=== PATIENT | male | born 1980 | race Caucasian/White ===

== ENCOUNTER 2017-02-25 13:40 | Emergency (ER) | payer MEDICARE, OTHER ==
[~2017-02-25] VITALS: Ht 182.9 cm; Wt 136.1 kg
[~2017-02-25 13:40] MED LIST: ACETAMINOPHEN-1 EAC1 PO; CELEXA40 MG PO; DOXYCYCLINE HY100 MG PO; NORCO 5-325 TA1 EACH PO; ZITHROMAX250 MG PO
[2017-02-25] MEDS ORDERED: NAPROXEN500 MG PO (13:56)
[2017-02-25] MEDS ORDERED: PREDNISONE20 MG PO (16:09)
== END 2017-02-25 16:28 | disposition home or self-care (01) ==
LOC: ED 13:40
DX: K52.9 Noninfective gastroenteritis and colitis, unspecified (principal); Z86.718 Personal history of other venous thrombosis and embolism; Z88.0 Allergy status to penicillin; Z88.8 Allergy status to other drugs, medicaments and biological substances; Z79.899 Other long term (current) drug therapy
CPT/HCPCS: 80053; 85025; 99283; J7512

== ENCOUNTER 2017-04-23 09:21 | Day surgery (SDC) | payer MEDICARE, OTHER ==
[~2017-04-23] VITALS: Ht 182.9 cm; Wt 136.1 kg
[~2017-04-23 09:21] MED LIST changes: +NAPROXEN500 MG PO; +PREDNISONE20 MG PO
[2017-04-23] MEDS ORDERED: NORCO 5-325 TA1 EACH PO (11:40)
[2017-04-23] MEDS ORDERED: CYCLOBENZAPRINE10 MG PO (11:40)
[2017-04-23] MEDS ORDERED: HYDROXYZINE HCL25 MG PO (11:42)
[2017-04-23] MEDS ORDERED: PRAZOSIN HCL1 GM (11:43)
[2017-04-23] MEDS ORDERED: OMEPRAZOLE20 MG PO (11:43)
--- NOTE | 2017-04-23 14:02 | NUR ---
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
--- NOTE | 2017-04-24 12:51 | OR ---
[facility] [address], [place] [address] Signed DATE OF OPERATION: 04/23/2017 SURGEON: Twila Han MD PREOPERATIVE DIAGNOSES: 1. Episodic left abdominal pain and episodic rectal bleeding. 2. History of clinical diagnosis of "irritable bowel syndrome.". POSTOPERATIVE DIAGNOSES: Large pedunculated polyp at 50 cm (excised). Small polyp of rectosigmoid also excised. PROCEDURE: Total colonoscopy to cecum with hot snare polypectomy x1 and cold morcellation polypectomy x1. SURGEON: Twila Han MD. ANESTHESIA: Intravenous sedation, propofol infusion; Pamela Kimball CRNA INDICATION: This morbidly obese, very large 36-year-old white man is a of the [place] war [place] war. He is said to have acquired a diarrheal illness while in [place]. He has been considered to have "irritable bowel syndrome" based on the evaluation of others in the past. He is referred by Dr. Jh Keene of [facility] for consideration of colonoscopy due to his symptoms and also due to episodic rectal bleeding. The patient has no family history of colon cancer that he is aware of. He is admitted to undergo colonoscopy. He understands the risks of bleeding, infection, and perforation. FINDINGS: Prep was good. Complete colonoscopy was undertaken to the cecum. There was no sign of colitis or diverticular change. There was a large pedunculated polyp at 50 cm, which was excised with hot snare polypectomy technique. Another small polyp, which was sessile was noted at the rectosigmoid. It too was excised with cold morcellation technique on that occasion. DESCRIPTION OF PROCEDURE: The patient was brought to the endoscopy suite and placed in lateral decubitus position. He was given intravenous sedation with propofol infusion with full cardiopulmonary monitoring based on his extreme body habitus and sleep apnea history. He clearly needed advanced airway control with this sedation as he had quite obvious sleep apnea issues. Electronically Signed By: TWILA HAN MD 04/24/17 1251 PATIENT NAME: TWILA OROZCO OPERATIVE REPORT DATE OF : 76 PHYSICIAN: TWILA HAN MD REPORT #: [id number] REPORT IS CONFIDENTIAL AND NOT TO BE RELEASED WITHOUT AUTHORIZATION [facility] [address], [place] [address] Signed Digital rectal examination was found to be normal. An Olympus video upper endoscope was passed in the rectum and manipulated throughout the colon. Large somewhat hypervascular polyp was noted at about 50 cm. The scope was passed beyond this ultimately to the cecum. A biopsy forceps was used to elevate the mucosa behind the ileocecal valve confirming it to be normal. The scope was then withdrawn with all due care. Right colon transverse and proximal left colon appeared normal at approximately 50 cm from the anal verge. The offending polyp could once again be seen. It had a longer stalk than I suspected previously. Using hot snare polypectomy technique, the polyp was excised in a loop around the mid portion of the stem of the pedunculated polyp. There was no untoward bleeding or other problem. The polyp was placed in a Thomas net and carefully withdrawn, and offloaded. The scope was reintroduced and the scope passed to 50 cm or so once again identifying the polypectomy site, which was normal without sign of leaking of blood or other problem. The scope was further withdrawn and careful inspection ultimately showed a small sessile polyp of the rectosigmoid. This was excised with cold morcellation technique. Retroflexed view was undertaken showing no appreciable hemorrhoidal change. The scope was removed. The patient was taken to recovery room in good condition. CONCLUDING DIAGNOSIS: Polyps x2. A large hypervascular pedunculated polyp may have accounted for bleeding. PLAN: Recommend high-fiber diet to start in 1 week to allow healing of the polypectomy site. Recommend repeat colonoscopy in 3 years, sooner if symptoms should occur. MD ESTHELA Santiago/MODL /[id number] Electronically Signed By: TWILA HAN MD 04/24/17 1251 PATIENT NAME: TWILA OROZCO OPERATIVE REPORT DATE OF : 76 PHYSICIAN: TWILA AHN MD REPORT #: [id number] REPORT IS CONFIDENTIAL AND NOT TO BE RELEASED WITHOUT AUTHORIZATION [address] [address] Signed cc: Jh Keene MD Electronically Signed By: TWILA HAN MD 04/24/17 1251 PATIENT NAME: TWILA ROOZCO OPERATIVE REPORT DATE OF : 76 PHYSICIAN: TWILA HAN MD REPORT #: [id number] REPORT IS CONFIDENTIAL AND NOT TO BE RELEASED WITHOUT AUTHORIZATION
== END 2017-04-23 14:45 | disposition home or self-care (01) ==
LOC: OPS 09:21 → DS 13:00 → OPS 13:00
PROVIDERS: Surgery
PROC: 0DBE8ZX Excision of Large Intestine, Via Natural or Artificial Opening Endoscopic, Diagnostic (ICD-10-PCS; 2017-04-23)
PROC: 0DBF8ZX Excision of Right Large Intestine, Via Natural or Artificial Opening Endoscopic, Diagnostic (ICD-10-PCS; principal; 2017-04-23 13:00)
DX: D12.6 Benign neoplasm of colon, unspecified (principal); D37.4 Neoplasm of uncertain behavior of colon; F32.9 Major depressive disorder, single episode, unspecified; K21.9 Gastro-esophageal reflux disease without esophagitis; E66.01 Morbid (severe) obesity due to excess calories; Z88.0 Allergy status to penicillin; Z88.8 Allergy status to other drugs, medicaments and biological substances; Z96.652 Presence of left artificial knee joint; Z98.818 Other dental procedure status; Z98.890 Other specified postprocedural states; Z68.41 Body mass index [BMI] 40.0-44.9, adult; Z79.899 Other long term (current) drug therapy
CPT/HCPCS: 00810; J2250; J2704; J3010; J7120

== ENCOUNTER 2017-04-23 21:05 | Emergency (ER) | payer MEDICARE, OTHER ==
[~2017-04-23] VITALS: Ht 182.9 cm; Wt 136.1 kg
[~2017-04-23 21:05] MED LIST changes: +CYCLOBENZAPRINE10 MG PO; +HYDROXYZINE HCL25 MG PO; +OMEPRAZOLE20 MG PO; +PRAZOSIN HCL1 GM
== END 2017-04-23 23:20 | disposition home or self-care (01) ==
LOC: ED 21:05
DX: K91.840 Postprocedural hemorrhage of a digestive system organ or structure following a digestive system procedure (principal); K62.5 Hemorrhage of anus and rectum; Z86.718 Personal history of other venous thrombosis and embolism; Z87.891 Personal history of nicotine dependence; Z88.0 Allergy status to penicillin; Z88.1 Allergy status to other antibiotic agents; Z79.899 Other long term (current) drug therapy
CPT/HCPCS: 85025; 99283

== ENCOUNTER 2021-12-07 16:31 | Emergency (ER) | payer OTHER ==
[~2021-12-07] VITALS: Ht 182.9 cm; Wt 136.1 kg
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
== END 2021-12-07 18:05 | disposition home or self-care (01) ==
LOC: ED 16:31
DX: T59.811A Toxic effect of smoke, accidental (unintentional), initial encounter (principal); F43.10 Post-traumatic stress disorder, unspecified; Z87.891 Personal history of nicotine dependence; Z88.1 Allergy status to other antibiotic agents; Z88.0 Allergy status to penicillin; Z79.899 Other long term (current) drug therapy
CPT/HCPCS: 99283

== ENCOUNTER 2021-12-29 22:18 | Emergency (ER) | payer OTHER ==
[~2021-12-29] VITALS: Ht 182.9 cm; Wt 117.6 kg
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
[2021-12-29] MEDS ORDERED: ADDERALL XR 2525 MG PO (23:09)
[2021-12-29] MEDS ORDERED: WELLBUTRIN SR100 MG PO (23:09)
--- NOTE | 2022-01-05 13:07 | EKG ---
[facility] [address] [facility] [place] [address] Signed Normal sinus rhythm Normal ECG No previous ECGs available Confirmed by EVELYN MULLEN MD ([id number]) on 01/05/2022 1:07:37 PM Electronically Signed By: EVELYN MULLEN MD 01/05/22 1307 PATIENT NAME: TWILA OROZCO Electrocardiogram DATE OF : 76 PHYSICIAN: EVELYN MULLEN MD REPORT #: [id number] REPORT IS CONFIDENTIAL AND NOT TO BE RELEASED WITHOUT AUTHORIZATION
== END 2021-12-30 01:50 | disposition home or self-care (01) ==
LOC: ED 22:18
DX: R55 Syncope and collapse (principal); Z20.822 Contact with and (suspected) exposure to COVID-19; F43.10 Post-traumatic stress disorder, unspecified; Z87.891 Personal history of nicotine dependence; Z88.8 Allergy status to other drugs, medicaments and biological substances; Z88.0 Allergy status to penicillin; Z79.899 Other long term (current) drug therapy
CPT/HCPCS: 36415; 70450; 80048; 81001; 84484; 85025; 87502; 93005; 93010; 99284-25; C9803; U0003